=== PATIENT | female | born 1965 | race Caucasian/White ===

== ENCOUNTER 2016-08-13 14:34 | Emergency (ER) | payer BC ==
[2016-08-13 15:54] LABS: HEMOGLOBIN 12.7 gm/dl (12.3-15.3); RED BLOOD COUNT 4.45 M/UL (4.00-5.10); WHITE BLOOD COUNT 4.2 K/UL (4.5-11.0)
[2016-08-13 16:12] LABS: BUN/CREATININE RATIO 30 (0-10)
[2017-01-04] MEDS ORDERED: [UNRECOGNIZED DRUG - OTHER] PO (07:28)
[2017-01-04] MEDS ORDERED: HYDROCODON-ACE1 EAC6 PO (07:28)
[2017-01-04] MEDS ORDERED: ANTIVERT 25MG T25 MG PO (19:02)
== END 2016-08-13 18:57 | disposition home or self-care (01) ==
LOC: ER1 14:34
PROVIDERS: Emergency Medicine
DX: N39.0 Urinary tract infection, site not specified (principal)
CPT/HCPCS: 36415; 80053; 81001; 82150; 83690; 85025; 87086; 96374; 96375; 99284; J2270; J2405

== ENCOUNTER → 2016-08-23 | Outpatient (CLI) | payer BC ==
[~2016-08-23] MED LIST: ANTIVERT 25MG T25 MG PO; HYDROCODON-ACE1 EAC6 PO; [UNRECOGNIZED DRUG - OTHER] PO
== END ==
LOC: KOH-I 08-13 09:30
DX: M54.5 Low back pain (principal); M51.26 Other intervertebral disc displacement, lumbar region
CPT/HCPCS: 72148